=== PATIENT | male | born 1940 | race Caucasian/White ===

== ENCOUNTER → 2020-03-12 | Outpatient (CLI) | payer OTHER | LOC: SJCVCIMAG 10:52 | DX: I36.1 Nonrheumatic tricuspid (valve) insufficiency (principal); I77.811 Abdominal aortic ectasia; I25.10 Atherosclerotic heart disease of native coronary artery without angina pectoris; I10 Essential (primary) hypertension; E78.5 Hyperlipidemia, unspecified ==

== ENCOUNTER → 2020-12-08 | Outpatient (CLI) | payer OTHER, MEDICARE | LOC: SJCVC 14:55 | PROVIDERS: ATTEND Internal Medicine Cardiovascular Disease | DX: I25.10 Atherosclerotic heart disease of native coronary artery without angina pectoris (principal); R94.31 Abnormal electrocardiogram [ECG] [EKG]; I45.10 Unspecified right bundle-branch block; R00.0 Tachycardia, unspecified; I10 Essential (primary) hypertension; E78.00 Pure hypercholesterolemia, unspecified; C91.10 Chronic lymphocytic leukemia of B-cell type not having achieved remission; D45 Polycythemia vera; R53.83 Other fatigue; R06.02 Shortness of breath; D64.9 Anemia, unspecified; Z95.1 Presence of aortocoronary bypass graft; Z79.899 Other long term (current) drug therapy ==

== ENCOUNTER 2021-01-13 03:42 | Inpatient (IN) | payer OTHER, MEDICARE ==
[~2021-01-13] VITALS: Ht 182.9 cm; Wt 75.8 kg
[2021-01-13 03:46] VITALS: BP 133/56
[2021-01-13] MEDS ORDERED: HYDREA500 MG PO (03:56)
[2021-01-13] MEDS ORDERED: NORTRIPTYLINE H10 M2 PO (03:56)
[2021-01-13] MEDS ORDERED: FOLIC ACID1 MG PO (03:56)
[2021-01-13] MEDS ORDERED: NORVASC 2.5 MG2.5 M1 PO (03:56)
[2021-01-13] MEDS ORDERED: VITAMIN D21250 MC1 PO (03:59)
[2021-01-13] MEDS ORDERED: TOPROL XL25 MG PO (03:59)
[2021-01-13] MEDS ORDERED: ZOCOR 10 MG TAB10 M1 PO (03:59)
[2021-01-13] MEDS ORDERED: IRBESARTAN-HCT1 EAC1 PO (04:00)
[2021-01-13] MEDS ORDERED: HYDROCHLOROTH12.5 M2 PO (04:00)
[2021-01-13] MEDS ORDERED: ALLOPURINOL 10100 M3 PO (04:01)
[2021-01-13] MEDS ORDERED: FUROSEMIDE 20 M20 MG PO (04:01)
[2021-01-13] MEDS ORDERED: NEURONTIN300 MG PO (04:01)
[2021-01-13 04:42] LABS: MCHC 27.5 g/dL (28.0-37.0)
[2021-01-13 04:45] LABS: HEMATOCRIT 24.1 % (42.0-52.0); HEMOGLOBIN 6.6 gm/dL (14.0-18.0); MCH 22.7 pg (26.0-34.0); MCV 82.5 fL (80.0-100.0); PLATELET COUNT 23 thou/uL (150-400); RBC 2.92 mil/uL (4.50-6.00); RDW 23.1 % (10.5-14.5); WBC 22.9 thou/uL (4.0-11.0)
[2021-01-13 04:49] LABS: CALCIUM 7.9 mg/dL (8.5-10.1); CREATININE 1.2 mg/dL (0.7-1.3); POTASSIUM 4.2 mmol/L (3.5-5.1)
[2021-01-13 04:52] LABS: ALBUMIN 3.1 g/dL (3.4-5.0); TOTAL BILIRUBIN 1.3 mg/dL (0.2-1.0)
[2021-01-13 06:11] VITALS: BP 120/58
--- NOTE | 2021-01-13 06:29 | NUR ---
THIS NURSE ATTEMPTED TO CALL REPORT. THIS NURSE WAS TOLD BY THE PERSON WHO ANSWERED THE PHONE THAT SHE WOULD HAVE TO FIND THE NURSE AND HAVE HER CALL ME BACK.
[2021-01-13 06:56] VITALS: BP 128/62
[2021-01-13 07:25] VITALS: BP 123/60
[2021-01-13 09:14] LABS: CHOLESTEROL 98 mg/dL (<200); HDL CHOLESTEROL 35 mg/dL (>40); LDL CHOLESTEROL 52 mg/dL (<100); TC:HDL 2.8 Ratio (Not establshd); TRIGLYCERIDE 55 mg/dL (<150); VLDL 11 mg/dL (<40)
[2021-01-13 09:38] LABS: FOLIC ACID 18.6 ng/mL (8.6-58.9)
[2021-01-13 10:21] LABS: METAMYELOCYTES 1 %; MYELOCYTES 2 %; NUCLEATED RBCS 3 /100WBC
[2021-01-13 10:22] LABS: ANISOCYTOSIS 2+; MICROCYTES 2+; PLATELET ESTIMATE MARKEDLY DECREASED; TEARDROPS 2+
--- NOTE | 2021-01-13 13:42 | NUR ---
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 CM REVIEWED CHART AND SPOKE WITH CARE TEAM. CM CALLED AND SPOKE WITH PT OVER THE PHONE THIS DAY. PT APPEARED TO BE A&O X4. CM ROLE INTRODUCED. PT INDICATED HE RESIDES IN A TWO STORY HOUSE WITH HIS SPOUSE WITH A NUMBER OF STEPS TO ENTER AND STEPS INSIDE. 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 PT INDICATED NO HH HX. PT INDICATED HE PLANS TO RETURN HOME ONCE MEDICALLY STABLE. CM TO FOLLOW INDICATED WITH DC PLANNING. PT TO HAVE A SPLENECTOMY.
[2021-01-13 15:27] VITALS: BP 120/65
[2021-01-13 16:32] LABS: URINE BILIRUBIN NEGATIVE (Negative); URINE BLOOD NEGATIVE (Negative); URINE CLARITY CLEAR; URINE COLOR YELLOW; URINE GLUCOSE-RANDOM* NEGATIVE (Negative); URINE KETONES NEGATIVE (Negative); URINE LEUKOCYTES-REFLEX NEGATIVE (Negative); URINE NITRITE-REFLEX NEGATIVE (Negative); URINE PROTEIN (DIPSTICK) NEGATIVE (Negative); URINE SPECIFIC GRAVITY 1.015 (1.005-1.035)
--- NOTE | 2021-01-13 16:49 | NUR ---
Patient arrived to floor from ED at approximately 0740, VSS stable. Admission history and care plan completed. Dr. Rosales notified of patient arrival. Marianela Jackson, SLAB MILLER OPERATOR, was in to see patient upon admission, orders noted. Consult call with oncology and surgery. Dr. Pichardo stated no surgery indicated due to improvement in labs from yesterday. All medical records received from and placed in patient chart. Patient was given lunch. Requested [id number] with Dr. Rosales about care update. Dr. Rosales spoke with patient, no further need for information at this time. Will continue to monitor.
[2021-01-13 19:29] VITALS: BP 126/63
[2021-01-14 03:51] VITALS: BP 137/64
--- NOTE | 2021-01-14 03:54 | NUR ---
ASSESSMENT DOCUMENTED.PT RESTING IN NO ACUTE DISTRESS.VSS. UP WITH ASSIST BR.PT VERY FATIQUE EVEN WITH SLIGHT ACTIVITIES.DYSPNEA ON EXERTION WITH O2 SAT DESATING TO 85%.PT RECOVERS VERY QUICKLY WITH REST.IVF INFUSING ORDERED.POC IS TO CONTINUES W/CURRENT MANAGEMENT.
[2021-01-14 07:25] VITALS: BP 136/61
[2021-01-14 08:51] LABS: HEMATOCRIT 24.9 % (42.0-52.0); HEMOGLOBIN 6.9 gm/dL (14.0-18.0); MCH 22.8 pg (26.0-34.0); MCHC 27.5 g/dL (28.0-37.0); MCV 82.8 fL (80.0-100.0); RBC 3.01 mil/uL (4.50-6.00); RDW 22.7 % (10.5-14.5); WBC 21.2 thou/uL (4.0-11.0)
[2021-01-14 09:41] LABS: ABSOLUTE NEUTROPHILS 18.7 thou/uL (1.4-8.2); ANISOCYTOSIS 2+; LARGE PLATELETS FEW; METAMYELOCYTES 2 %; MYELOCYTES 1 %; NUCLEATED RBCS 2 /100WBC; OVALOCYTES 1+; PLATELET COUNT 20 thou/uL (150-400); PLATELET ESTIMATE DECREASED; POLYCHROMASIA 1+
[2021-01-14 09:42] LABS: HYPOCHROMASIA 2+
--- NOTE | 2021-01-14 14:55 | NUR ---
CARE TEAM INDICATED NO SURGICAL INTERENTION NEEDED AT HIS TIME. CARE TEAM INDICATED THAT THEY ANTICIPATE PT REMAINING HERE OVER WEEKEND FOR CONTINUED IV ABX AND POSSIBLE DISCHARGING BEGINING OF NEXT WEEK. CM TO FOLLOW INDICATED WITH DC PLANNING.
[2021-01-14 15:29] VITALS: BP 119/61
--- NOTE | 2021-01-14 19:45 | NUR ---
Assumed pt care at 7am.Pt in bed resting with o2 on at 2lnc.Assessment completed.vss.Pt rported feeling better and wanted to go home.Dr Pichardo here,order noted.Pt will be here over the weekend with iv antibiotic infusion. Pt in and out of bed to bathroom eith assist.Voided without c/o.Pt has good appetite. called and updates given.No further c/o.Will continue to monitor.
[2021-01-14 19:59] VITALS: BP 127/52
--- NOTE | 2021-01-15 02:53 | NUR ---
PT CARE ASSUMED WITH PT IN BED WATCHING TV.PT IS A/O X4.PT IS UP WITH X1 ASSIST TO THE BATHROOM AND ALSO USES URINAL.PT IS ON 2L OF NC.PT APPEARED TO BE IN NO ACUTE DISTRESS.PT DOESNT CALL FOR HELP WHEN GETTING UP.BED ALARM ON AND FALL PRECAUTIONS IN PLACE.WILL CONTINUE TO MONITOR PER POC
[2021-01-15 05:33] LABS: ALBUMIN 2.7 g/dL (3.4-5.0); CALCIUM 7.4 mg/dL (8.5-10.1); PHOSPHORUS 2.8 mg/dL (2.5-4.9); POTASSIUM 4.1 mmol/L (3.5-5.1)
[2021-01-15 05:34] LABS: HEMATOCRIT 24.1 % (42.0-52.0); HEMOGLOBIN 6.5 gm/dL (14.0-18.0); MCHC 26.9 g/dL (28.0-37.0); WBC 27.2 thou/uL (4.0-11.0)
[2021-01-15 05:36] LABS: MCH 22.5 pg (26.0-34.0); MCV 83.9 fL (80.0-100.0); RBC 2.88 mil/uL (4.50-6.00); RDW 22.2 % (10.5-14.5)
[2021-01-15 05:43] LABS: PLATELET COUNT 20 thou/uL (150-400)
[2021-01-15 08:35] LABS: ABSOLUTE NEUTROPHILS 23.9 thou/uL (1.4-8.2); METAMYELOCYTES 2 %; MYELOCYTES 1 %; NUCLEATED RBCS 2 /100WBC
[2021-01-15 08:37] LABS: ANISOCYTOSIS 3+; HYPOCHROMASIA 2+
[2021-01-15 08:38] LABS: OVALOCYTES 2+
[2021-01-15 08:39] LABS: TEARDROPS FEW
[2021-01-15 08:41] VITALS: BP 90/47
[2021-01-15 15:44] LABS: HEMATOCRIT 24.5 % (42.0-52.0); HEMOGLOBIN 6.5 gm/dL (14.0-18.0)
[2021-01-15 16:15] VITALS: BP 110/51
--- NOTE | 2021-01-15 19:58 | NUR ---
Pt assumed care. Pt is alert and oriented x4. Pt on 2L O2 NC. Pt up & assist x1. Pt has lower extremities compression SCD on. Pt has R FA. Pt hgb this am was 6.5. Pt refused blood transfusion at [address] Montgomery. Pt complains of pain on LL Back and rated pain 6/10. Given acetaminophen and no relief was noted. Inform Dr. Montgomery and awaiting new orders. Endorse the night nurse. Pt on bed, bed on the lowest position, call light within in reach. Will continue to monitor.
[2021-01-15 20:40] VITALS: BP 125/63
[2021-01-16 05:11] LABS: HEMOGLOBIN 6.7 gm/dL (14.0-18.0)
[2021-01-16 05:13] LABS: HEMATOCRIT 24.6 % (42.0-52.0); MCH 22.7 pg (26.0-34.0); MCV 83.9 fL (80.0-100.0); RBC 2.93 mil/uL (4.50-6.00); RDW 22.9 % (10.5-14.5); WBC 23.6 thou/uL (4.0-11.0)
--- NOTE | 2021-01-16 05:53 | NUR ---
ASSUMED CARE OF PT AT SHIFT CHANGE. PT IS AOX4 AND LETS NEEDS BE KNOWN. FALL PRECAUTION IN PLACE. ASSESSMENT CHARTED. PT REPORTED SOME PAIN AND WAS TREATED WITH PRN PAIN MEDS. PT HAD A CRITICAL PLATELET COUNT OF 19. RESULT CALLED TO INFORMATION RESOURCES DIRECTORTRACTOR CRANE OPERATOR. PT WAS LEDA TO GET COMFORTABLE AND SLEEP PART OF THE SHIFT. VSS AND NO S/S OF ACUTE DISTRESS. WILL CONTINUE TO MONITOR.
[2021-01-16 07:19] VITALS: BP 113/58
[2021-01-16] MEDS ORDERED: CEFUROXIME500 MG PO (10:49)
[2021-01-16] MEDS ORDERED: TRAMADOL 50 MG50 MG PO (10:50)
[2021-01-16] MEDS ORDERED: COLACE100 MG PO (10:50)
[2021-01-16 11:45] VITALS: BP 110/51
--- NOTE | 2021-01-16 13:46 | NUR ---
Assumed pt care this am, VS stable Hgb still below 7, refuses blood trasnfusion. Pain is managed with medicaitons , partial relief is noted. POC followed, with no signs or verbalizations of distress noted. IV removed, pt is now dc, picked up by the family at the ER.
--- NOTE | 2021-01-19 11:31 | HC ---
[facility] [place] [address] CONSULTATION Name: KATE MYRICK Room #: 459-P [facility] IN M.R.#: [id number] Admission: 01/13/21 Attend Phys: Lexii Rand Ulises Discharge: 01/16/21 Date of : 44 Report #: [id number] THIS REPORT FOR: cc: Timothy Grijalva MD, Thomas P. MD McKittrick, Richard James MD ~ DATE OF SERVICE: 01/13/2021 REASON FOR CONSULTATION: Cytopenias and hepatosplenomegaly. HISTORY OF PRESENT ILLNESS: The patient is a 80-year-old male, followed by one of my partners, Dr. Li Gaston, at the [facility]. 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 It sounds like this was diagnosed by Dr. Kevin De León in the past and he had not been on any therapy. He did originally have phlebotomies over the year and his white count had been elevated and Hydrea was added in about 2016. 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 Gaston most recently on 11/25/2020. At that time, his hemoglobin was 8.2, platelet count 32,000, white count 48,400 with an ANC of 44,530. He also had lab test at that time notable for a creatinine 0.82, total bilirubin of 1.5 with normal Transaminases. His LDH back in 10/2020 was 523, had had a transfusion, I believe last given on 11/10/2020. His imaging at , last had an ultrasound on 04/30/2020, at which time, the spleen was described as 23.3 cm. He also had cholelithiasis. Note that the patient had a bone marrow on 04/07/2020. 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 Also, the previously diagnosed with polycythemia vera with a hypercellular bone marrow with [id number] reticulin fibrosis in the range of 2-3/3 and moderate collagen fibrosis, on a grade 2/3. 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 The patient was admitted after a 3-day history of left flank pain. He denies recent fevers or chills or trauma. He does have a history of shingles, but that had been on his lower extremities and not in this region. He describes it as not being in the same. He does not describe any activities change in his left flank pain, whether it is sitting, standing, rolling to one side, taking a deep breath, defecation, or urination. PAST MEDICAL HISTORY: Notable for the history of polycythemia vera, for at least 10 years, if not longer, with myelofibrosis complicated that. Also, a diagnosis of CLL having been treated with obinutuzumab begun on 05/13/2020 and last given on 11/25/2020. I believe this was done to try to clear his bone marrow of the CLL. Also, has a history of aortic aneurysm in the past, coronary artery disease, hypertension, hypercholesterolemia, had a CABG in the past, and [facility] [address] [place] [address] CONSULTATION Name: KATE MYRICK Room #: 459-P DIS IN M.R.#: [id number] Admission: 01/13/21 Attend Phys: Lexii Montgomery Discharge: 01/16/21 Date of : 44 Report #: [id number] neuropathy. MEDICATIONS: Vitamin D 5000 units, metoprolol 25 daily, pantoprazole 40 daily, vancomycin 1000 mg q. 12 hours, nortriptyline 10 mg at bedtime, gabapentin 300 mg t.i.d., ipratropium-albuterol 3 mL respiratory therapy q. 4 hours, hydroxyurea 500 mg daily, folic acid 1 mg daily, cefepime 1 gram q. 12 hours, allopurinol 600 mg daily, fentanyl p.r.n., Tylenol p.r.n., MiraLax p.r.n., nitroglycerin p.r.n., and zolpidem p.r.n. PHYSICAL EXAMINATION: VITAL SIGNS: The patient's height is 6 feet, 182.9 cm. Weight is 167.2 pounds or 75.8 kilograms. Recent vital signs when examined this morning were blood pressure 123/60, respirations 16, O2 sat 100%, pulse 71, temperature 97.6. MOOD: The patient is alert, pleasant, and conversant. NEUROLOGIC: Speech and thought pattern appear to be normal. Moving extremities normally. ABDOMEN: Has a spleen palpable probably 12-15 cm below the left costal margin. LYMPHATICS: No enlarged lymph nodes in the supraclavicular, cervical, axillary, or inguinal region. EXTREMITIES: Without clubbing. There may be some trace edema. RADIOLOGIC STUDIES: Here at [facility] included the CT of the abdomen and pelvis, which showed liver normal size, spleen 21 cm with no focal lesions or intrahepatic ductal dilatation. There was cholelithiasis. No nephrolithiasis or obstructive uropathy, small bilateral pleural effusions. LABORATORY DATA: Here at [facility] this morning include a creatinine of 1.2, total bilirubin 1.3. Transaminases normal. Albumin 3.1. White count 22.5, hemoglobin 6.6, to be transfused, platelets of 23,000 with 74% neutrophils, 1 metamyelocyte, 2 myelocytes, 3 nucleated red blood cells. ANC thought to be 19,000 with 2+ anisocytosis, 2+ microcytosis, and 2+ teardrops. TSH 1.66, folate 18.6. Vitamin B12 1552. Coronavirus PCR negative. 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 UA essentially unremarkable. ASSESSMENT AND PLAN: 1. History of polycythemia rubra vera, PAZ-2 positive with myelofibrosis component. No specific therapy. Splenomegaly could be causing his pain, but it appears to be stable in size. No evidence of infarction. I agree with looking out of other sources and surgical consultation, though I would not remove the spleen without a lot of forethought. 2. Cytopenias. Hemoglobin and platelet count not that much different than recent baseline. Continue hydroxyurea and folic acid at same doses. 3. Left flank pain, unclear etiology at this time. 4. Hypertension. Continue medications. [address] [address] CONSULTATION Name: ELENKATEDADA WILLIS Room #: 459-[facility] IN M.R.#: [id number] Admission: 01/13/21 Attend Phys: Lexii Montgomery Discharge: 01/16/21 Date of : 44 Report #: [id number] 5. Hyperlipidemia. Continue simvastatin. 6. Health maintenance. Agree with vitamin D. We will follow with you. <ELECTRONICALLY SIGNED> By: Florentino Dumont MD 01/19/21 1131 [id number] Florentino Dumont MD /nt
== END 2021-01-16 13:52 | disposition home or self-care (01) | DRG 444 ==
LOC: ER 03:42 → EROBS 05:39 → 4W 05:39
PROVIDERS: Emergency Medicine; Internal Medicine Hematology & Oncology; ADMIT Hospitalist; ATTEND Hospitalist
PROC: 5A0935A Assistance with Respiratory Ventilation, Less than 24 Consecutive Hours, High Flow/Velocity Cannula (ICD-10-PCS; principal; 2021-01-14)
DX: K80.20 Calculus of gallbladder without cholecystitis without obstruction (principal); R65.11 Systemic inflammatory response syndrome (SIRS) of non-infectious origin with acute organ dysfunction; J90 Pleural effusion, not elsewhere classified; J98.11 Atelectasis; D73.5 Infarction of spleen; D73.1 Hypersplenism; I25.10 Atherosclerotic heart disease of native coronary artery without angina pectoris; E78.00 Pure hypercholesterolemia, unspecified; D75.9 Disease of blood and blood-forming organs, unspecified; D64.9 Anemia, unspecified; D69.6 Thrombocytopenia, unspecified; I10 Essential (primary) hypertension; E78.5 Hyperlipidemia, unspecified; N28.9 Disorder of kidney and ureter, unspecified; G62.9 Polyneuropathy, unspecified; Z20.822 Contact with and (suspected) exposure to COVID-19; Z95.1 Presence of aortocoronary bypass graft; Z79.899 Other long term (current) drug therapy; Z85.6 Personal history of leukemia
CPT/HCPCS: 10045

== ENCOUNTER → 2021-03-03 | Outpatient (CLI) | payer OTHER, MEDICARE ==
[~2021-03-03] MED LIST: ALLOPURINOL 10100 M3 PO; CEFUROXIME500 MG PO; COLACE100 MG PO; FOLIC ACID1 MG PO; FUROSEMIDE 20 M20 MG PO; HYDREA500 MG PO; HYDROCHLOROTH12.5 M2 PO; IRBESARTAN-HCT1 EAC1 PO; NEURONTIN300 MG PO; NORTRIPTYLINE H10 M2 PO; NORVASC 2.5 MG2.5 M1 PO; TOPROL XL25 MG PO; TRAMADOL 50 MG50 MG PO; VITAMIN D21250 MC1 PO; ZOCOR 10 MG TAB10 M1 PO
== END ==
LOC: SJCVCIMAG 08:25
PROVIDERS: ATTEND Internal Medicine Cardiovascular Disease
DX: I49.3 Ventricular premature depolarization (principal); R06.00 Dyspnea, unspecified; R11.10 Vomiting, unspecified; I25.810 Atherosclerosis of coronary artery bypass graft(s) without angina pectoris; I71.2 Thoracic aortic aneurysm, without rupture; D45 Polycythemia vera; E78.00 Pure hypercholesterolemia, unspecified; I10 Essential (primary) hypertension; C91.10 Chronic lymphocytic leukemia of B-cell type not having achieved remission; D64.9 Anemia, unspecified; Z95.1 Presence of aortocoronary bypass graft; Z79.899 Other long term (current) drug therapy

== ENCOUNTER → 2021-08-16 | Outpatient (CLI) | payer OTHER, MEDICARE | LOC: SJCVC 15:06 | PROVIDERS: ATTEND Internal Medicine Cardiovascular Disease | DX: R94.31 Abnormal electrocardiogram [ECG] [EKG] (principal); I34.1 Nonrheumatic mitral (valve) prolapse; I10 Essential (primary) hypertension; E78.00 Pure hypercholesterolemia, unspecified; R09.89 Other specified symptoms and signs involving the circulatory and respiratory systems; D45 Polycythemia vera; C91.10 Chronic lymphocytic leukemia of B-cell type not having achieved remission; I71.2 Thoracic aortic aneurysm, without rupture; Z95.1 Presence of aortocoronary bypass graft; I25.810 Atherosclerosis of coronary artery bypass graft(s) without angina pectoris; Z79.899 Other long term (current) drug therapy ==